=== PATIENT | male | born 1990 | race Caucasian/White ===

== ENCOUNTER 2018-06-04 07:49 | Inpatient (IN) | payer MEDICAID, OTHER ==
[2018-06-04] VITALS (18 sets, daily range): BP systolic 100–154; BP diastolic 58–83
[~2018-06-04] VITALS: Ht 182.9 cm; Wt 77.5 kg
[2018-06-04] MEDS ORDERED: morphine 4 MG/ML inj SYRINge IV ONE (08:25)
[2018-06-04] MEDS ORDERED: normal saline 1000ML IV soln IVB ONE (08:25)
[2018-06-04] MEDS ORDERED: ondansetron/PF 4mg/2ml inj IV ONE (08:25)
[2018-06-04 08:52] LABS: BASOPHILS # (AUTO) 0.1 X10'3 (0-0.2); BASOPHILS % (AUTO) 0.4 % (0-1); EOSINOPHILS % (AUTO) 0 % (0-6); HEMOGLOBIN 12.5 g/dl (14.0-17.9); LYMPHOCYTES # (AUTO) 1.2 X10'3 (1.1-4.8); LYMPHOCYTES % (AUTO) 7.5 % (21-51); MEAN CORPUSCULAR HEMOGLOBIN 30.4 PG (27.0-31.0); MEAN CORPUSCULAR HGB CONC 34.7 % (33.0-36.5); MEAN CORPUSCULAR VOLUME 87.7 FL (78-98); MEAN PLATELET VOLUME 7.6 FL (7.4-10.4); MONOCYTES # (AUTO) 1.3 X10'3 (0-0.9); MONOCYTES % (AUTO) 7.9 % (2-12); NEUTROPHILS # (AUTO) 13.4 X10'3 (1.8-7.7); NEUTROPHILS % (AUTO) 84.2 % (42-75); PLATELET COUNT 169 X10'3 (140-440); RED CELL DISTRIBUTION WIDTH 13.3 % (11.5-14.5); WHITE BLOOD COUNT 15.9 X10'3 (4.5-11.0)
[2018-06-04 09:06] LABS: ALANINE AMINOTRANSFERASE 19 U/L (12-78); ALBUMIN 3.6 G/DL (3.4-5.0); ALKALINE PHOSPHATASE 47 IU/L (46-116); ANION GAP 8 (8-16); ASPARTATE AMINO TRANSFERASE 18 U/L (10-37); BILIRUBIN,TOTAL 0.5 MG/DL (0.1-1.0); BLOOD UREA NITROGEN 9 MG/DL (7-18); CALCIUM 8.4 MG/DL (8.5-10.1); CHLORIDE 100 MMOL/L (99-107); CREATININE 0.69 MG/DL (0.60-1.10); GLUCOSE 103 MG/DL (70-104); POTASSIUM 3.5 MMOL/L (3.5-5.1); SODIUM 135 MMOL/L (135-145); TOTAL CARBON DIOXIDE 27.2 MMOL/L (24-32); TOTAL PROTEIN 7.2 G/DL (6.4-8.2); eGFR > 90 ML/MIN
[2018-06-04] MEDS ORDERED: piperacillin/tazo 4.5gm/100ml 100 ML IV STA (09:07)
[2018-06-04] MEDS ORDERED: NO HOME MEDS (09:09)
[2018-06-04] MEDS ORDERED: diphenhydrAMINE 50 mg/ml inj IV PRN (10:00)
[2018-06-04] MEDS ORDERED: acetaminophen 325mg tablet PO PRN (10:00)
[2018-06-04] MEDS ORDERED: magnesium hydroxide 30ml (MOM) UD suspension PO PRN (10:00)
[2018-06-04] MEDS ORDERED: ondansetron/PF 4mg/2ml inj IV PRN ×2 (10:00→16:20)
[2018-06-04] MEDS: normal saline 1000ml 1,000 ML IV SCH ×2 (10:12→19:56)
[2018-06-04] MEDS ORDERED: glycopyrrolate 0.2mg/ml inj ONE (14:56)
[2018-06-04] MEDS ORDERED: neostigmine methylsulfate 1 MG/ML 10ml vial ONE (14:56)
[2018-06-04] MEDS ORDERED: sevoflurane 250ml liquid IH ONE ×2 (14:56→15:49)
[2018-06-04] MEDS ORDERED: dexamethasone sod phosphate 10mg/ml inj ONE (14:56)
[2018-06-04] MEDS ORDERED: ondansetron/PF 4mg/2ml inj ONE (14:56)
[2018-06-04] MEDS ORDERED: fentaNYL/PF 50MCG/1 ML 2ML syringe ONE (15:54)
[2018-06-04] MEDS ORDERED: midazolam 2 mg/2 ml injection ONE (15:55)
[2018-06-04] MEDS ORDERED: propofol inj 20 ML IV ONE (15:57)
[2018-06-04] MEDS: piperacillin/tazo 3.375gm/50ml 50 ML IV SCH (16:00)
[2018-06-04] MEDS ORDERED: ceFAZolin 1000mg inj ONE (16:01)
[2018-06-04] MEDS ORDERED: ROPIVAcaine 0.5% (5mg/ml) 30ml vial IJ ONE (16:18)
[2018-06-04] MEDS ORDERED: ringers solution, lacted 1,000 ML IV SCH (16:19)
[2018-06-04] MEDS ORDERED: morphine 4 MG/ML inj SYRINge IV PRN ×2 (16:20)
[2018-06-04] MEDS ORDERED: meperidine/PF 25mg/ml syringe IV PRN ×3 (16:20)
[2018-06-04] MEDS ORDERED: proCHLORperazine 10 MG/2 ml inj IV PRN (16:20)
[2018-06-04] MEDS: dronabinol 2.5mg capsule PO PRN (19:24)
[2018-06-04] MEDS: oxyCODONE IR 5mg (immed. release) tablet PO PRN (20:11)
[2018-06-05] VITALS: BP 139/83
[2018-06-05] MEDS: piperacillin/tazo 3.375gm/50ml 50 ML IV SCH ×3 (00:34→16:29)
[2018-06-05] MEDS: oxyCODONE IR 5mg (immed. release) tablet PO PRN ×3 (01:30→19:02)
[2018-06-05] MEDS: normal saline 1000ml 1,000 ML IV SCH ×2 (04:19→15:54)
[2018-06-05 05:30] LABS: BASOPHILS % (AUTO) 0.1 % (0-1); EOSINOPHILS % (AUTO) 0 % (0-6); HEMOGLOBIN 12.5 g/dl (14.0-17.9); LYMPHOCYTES # (AUTO) 1.8 X10'3 (1.1-4.8); MEAN CORPUSCULAR HEMOGLOBIN 30.5 PG (27.0-31.0); MEAN CORPUSCULAR HGB CONC 34.7 % (33.0-36.5); MEAN CORPUSCULAR VOLUME 87.7 FL (78-98); MEAN PLATELET VOLUME 7.8 FL (7.4-10.4); MONOCYTES # (AUTO) 1.2 X10'3 (0-0.9); MONOCYTES % (AUTO) 8.5 % (2-12); NEUTROPHILS # (AUTO) 10.9 X10'3 (1.8-7.7); NEUTROPHILS % (AUTO) 78.4 % (42-75); PLATELET COUNT 162 X10'3 (140-440); RED BLOOD COUNT 4.11 X10'6 (4.70-6.10); RED CELL DISTRIBUTION WIDTH 13.6 % (11.5-14.5); WHITE BLOOD COUNT 13.9 X10'3 (4.5-11.0)
[2018-06-05 06:08] LABS: ALANINE AMINOTRANSFERASE 22 U/L (12-78); ALBUMIN 3.1 G/DL (3.4-5.0); ALBUMIN/GLOBULIN RATIO 0.8 (1.1-1.5); ALKALINE PHOSPHATASE 46 IU/L (46-116); ANION GAP 6 (8-16); ASPARTATE AMINO TRANSFERASE 15 U/L (10-37); BILIRUBIN,TOTAL 0.5 MG/DL (0.1-1.0); BLOOD UREA NITROGEN 6 MG/DL (7-18); BUN/CREATININE RATIO 7.8 (5.4-32.0); CALCIUM 8.7 MG/DL (8.5-10.1); CHLORIDE 101 MMOL/L (99-107); CREATININE 0.77 MG/DL (0.60-1.10); GLUCOSE 97 MG/DL (70-104); POTASSIUM 3.8 MMOL/L (3.5-5.1); SODIUM 135 MMOL/L (135-145); TOTAL CARBON DIOXIDE 28.1 MMOL/L (24-32); TOTAL PROTEIN 6.8 G/DL (6.4-8.2); eGFR > 90 ML/MIN
[2018-06-05 07:07] VITALS: BP 151/82
[2018-06-05] MEDS: dronabinol 2.5mg capsule PO PRN (10:18)
[2018-06-05 11:56] VITALS: BP 111/61
[2018-06-05] MEDS: lactobacillus rhamnosus 10,000 MMU CELLS/CAPSULE PO SCH (19:10)
[2018-06-05 20:00] VITALS: BP 128/76
[2018-06-06] VITALS: BP 121/67
[2018-06-06] MEDS: piperacillin/tazo 3.375gm/50ml 50 ML IV SCH ×3 (00:05→16:39)
[2018-06-06] MEDS: normal saline 1000ml 1,000 ML IV SCH ×3 (03:34→13:19)
[2018-06-06 07:00] VITALS: BP 106/55
[2018-06-06] MEDS: lactobacillus rhamnosus 10,000 MMU CELLS/CAPSULE PO SCH ×2 (08:12→19:08)
[2018-06-06] MEDS: oxyCODONE IR 5mg (immed. release) tablet PO PRN ×3 (08:17→19:08)
[2018-06-06 20:00] VITALS: BP 132/67
[2018-06-06] MEDS: dronabinol 2.5mg capsule PO PRN (20:50)
[2018-06-07] VITALS: BP 116/65
[2018-06-07] MEDS: piperacillin/tazo 3.375gm/50ml 50 ML IV SCH ×2 (00:07→07:18)
[2018-06-07] MEDS: nicotine 21mg patch - 24 hr TD SCH ×3 (00:09→07:13)
[2018-06-07] MEDS: normal saline 1000ml 1,000 ML IV SCH (02:54)
[2018-06-07 05:03] LABS: BASOPHILS % (AUTO) 0.5 % (0-1); EOSINOPHILS # (AUTO) 0.1 X10'3 (0-0.9); HEMATOCRIT 38.6 % (42.0-52.0); HEMOGLOBIN 13.2 g/dl (14.0-17.9); LYMPHOCYTES # (AUTO) 1.9 X10'3 (1.1-4.8); LYMPHOCYTES % (AUTO) 25.8 % (21-51); MEAN CORPUSCULAR HEMOGLOBIN 30.1 PG (27.0-31.0); MEAN CORPUSCULAR HGB CONC 34.3 % (33.0-36.5); MEAN PLATELET VOLUME 7.4 FL (7.4-10.4); MONOCYTES # (AUTO) 0.7 X10'3 (0-0.9); MONOCYTES % (AUTO) 9.1 % (2-12); NEUTROPHILS # (AUTO) 4.6 X10'3 (1.8-7.7); NEUTROPHILS % (AUTO) 62.6 % (42-75); PLATELET COUNT 213 X10'3 (140-440); RED BLOOD COUNT 4.39 X10'6 (4.70-6.10); WHITE BLOOD COUNT 7.3 X10'3 (4.5-11.0)
[2018-06-07 05:27] LABS: ALANINE AMINOTRANSFERASE 18 U/L (12-78); ALBUMIN 2.8 G/DL (3.4-5.0); ALBUMIN/GLOBULIN RATIO 0.7 (1.1-1.5); ALKALINE PHOSPHATASE 44 IU/L (46-116); ANION GAP 7 (8-16); ASPARTATE AMINO TRANSFERASE 13 U/L (10-37); BILIRUBIN,TOTAL 0.3 MG/DL (0.1-1.0); BLOOD UREA NITROGEN 9 MG/DL (7-18); CALCIUM 8.8 MG/DL (8.5-10.1); CHLORIDE 104 MMOL/L (99-107); CREATININE 0.75 MG/DL (0.60-1.10); GLUCOSE 95 MG/DL (70-104); POTASSIUM 4.2 MMOL/L (3.5-5.1); SODIUM 140 MMOL/L (135-145); TOTAL CARBON DIOXIDE 29.1 MMOL/L (24-32); TOTAL PROTEIN 6.7 G/DL (6.4-8.2); eGFR > 90 ML/MIN
[2018-06-07 07:14] VITALS: BP 105/50
[2018-06-07] MEDS: oxyCODONE IR 5mg (immed. release) tablet PO PRN (07:18)
[2018-06-07] MEDS: lactobacillus rhamnosus 10,000 MMU CELLS/CAPSULE PO SCH (07:18)
[2018-06-07] MEDS ORDERED: OXYC-658 PO (08:45)
[2018-06-07] MEDS ORDERED: CLIN300C85 PO (08:45)
== END 2018-06-07 10:13 | disposition home or self-care (01) | DRG 364 ==
LOC: ER 07:50 → OBSVTOIN 10:08 → ED HOLD 10:08 → SUR 3N 11:44
PROVIDERS: ADMIT Family Medicine; ATTEND Family Medicine
PROC: 0LD70ZZ Extraction of Right Hand Tendon, Open Approach (ICD-10-PCS; 2018-06-04)
PROC: 0L970ZZ Drainage of Right Hand Tendon, Open Approach (ICD-10-PCS; principal; 2018-06-04 15:49)
DX: L02.511 Cutaneous abscess of right hand (principal); M41.9 Scoliosis, unspecified; M65.841 Other synovitis and tenosynovitis, right hand; F12.90 Cannabis use, unspecified, uncomplicated; X58.XXXA Exposure to other specified factors, initial encounter; B95.61 Methicillin susceptible Staphylococcus aureus infection as the cause of diseases classified elsewhere; S61.224A Laceration with foreign body of right ring finger without damage to nail, initial encounter; F17.210 Nicotine dependence, cigarettes, uncomplicated; M54.9 Dorsalgia, unspecified; G89.29 Other chronic pain; Z83.3 Family history of diabetes mellitus; Z80.9 Family history of malignant neoplasm, unspecified; Y93.89 Activity, other specified; Y92.89 Other specified places as the place of occurrence of the external cause; Y99.8 Other external cause status; Z79.899 Other long term (current) drug therapy; Z71.6 Tobacco abuse counseling
CPT/HCPCS: 36415; 71045; 73140; 80053; 84145; 85025; 87040; 87070; 87075; 87077; 87102; 87186; 93005; 96361; 96365; 96375; 99285; A6222; A6446; A6449; A7000; J0690; J1100; J2250; J2270; J2405; J2543; J2704; J2710; J2795; J3010; J3490; J7030; J7120; Q0167